=== PATIENT | male | born 1965 ===

== ENCOUNTER 2018-03-13 08:16 | Emergency (ER) | payer BC ==
[2018-03-13 08:27] VITALS: BMI 23.6
[2018-03-13 08:33] VITALS: O2SAT 98
--- NOTE | 2018-03-13 09:10 | ED PDOC ---
HPI: Skin/Bite Injury Time Seen by Provider: 03/13/18 08:44 Chief Complaint (Nursing): Abnormal Skin Integrity Chief Complaint (Provider): Abnormal Skin Integrity History Per: Patient History/Exam Limitations: no limitations Onset/Duration Of Symptoms: Days Current Symptoms Are (Timing): Still Present Additional Complaint(s): 52 year old male presents to the ED complaining of itchy skin rash to the arms and legs, onset 3 days ago. Patient reports of hiking with on Wednesday but developed rash on . Patient took calamine lotion and Atarax to relieve symptoms but felt no relief. PMD: Dr. Fareed Fair Past Medical History Reviewed: Historical Data, Nursing Documentation, Vital Signs Vital Signs: Last Vital Signs Temp 97 F L 03/13/18 08:25 Pulse 64 03/13/18 08:25 Resp BP 123/81 03/13/18 08:25 Pulse Ox 98 03/13/18 08:31 - Medical History PMH: No Chronic Diseases - Surgical History Surgical History: No Surg Hx - Family History Family History: States: Unknown Family Hx - Immunization History Hx Tetanus Toxoid Vaccination: No Hx Influenza Vaccination: No Hx Pneumococcal Vaccination: No - Allergies Allergies/Adverse Reactions: Allergies Allergy/AdvReac Type Severity Reaction Status Date / Time No Known Allergies Allergy Verified 03/13/18 08:31 Review of Systems ROS Statement: Except As Marked, All Systems Reviewed And Found Negative Skin: Positive for: Rash (rash to both arms and legs) Physical Exam - Reviewed Nursing Documentation Reviewed: Yes Vital Signs Reviewed: Yes - Physical Exam Appears: Positive for: Non-toxic, No Acute Distress Head Exam: Positive for: ATRAUMATIC, NORMOCEPHALIC Skin: Positive for: Rash (lesions to arms and anterior thighs; no evidence of secondary bacterial infection, no drainage, no fluctuace, no tenderness) - ECG O2 Sat by Pulse Oximetry: 98 (RA) Medical Decision Making Medical Decision Making: Time: 902 Plan: -- Prednisone 50 mg PO -- Benadryl 50 mg PO Scribe Attestation: Documented by Aya Ghazy, acting as a scribe for Dr. Yadira Jerome MD. Provider Scribe Attestation: All medical record entries made by the Scribe were at my direction and personally dictated by me. I have reviewed the chart and agree that the record accurately reflects my personal performance of the history, physical exam, medical decision making, and the department course for this patient. I have also personally directed, reviewed, and agree with the discharge instructions and disposition. Disposition - Disposition Forms: [employer] (Danish)
[2018-03-13 09:56] VITALS: BP 110/70; PULSE 76; RESP 20; TEMP 98
== END 2018-03-13 09:55 | disposition home or self-care (01) ==
LOC: H.ER 08:16
DX: R21 Rash and other nonspecific skin eruption (principal)